=== PATIENT | male | born 1965 | race Caucasian/White ===

== ENCOUNTER 2022-04-06 13:22 | Inpatient (IN) | payer MEDICARE ==
[2022-04-06] VITALS (13 sets, daily range): BP systolic 109–165; BP diastolic 52–87; PULSE 52–104; TEMP 93–98.1
[~2022-04-06] VITALS: Ht 25.4 cm; Wt 81.0 kg
[~2022-04-06 13:22] MED LIST: CIPRO 500MG TA500 MG PO; FLOMAX 0.40.4 MG/CAP PO; MORPHINE SULFAT60 M1 PO; PERCOCET 325 MG1 TA2 PO; PERCOCET 5/321 UDTAB PO; ZOFRAN 4MG T4 MG/TAB PO
[2022-04-06 13:58] LABS: HEMATOCRIT 44.8 % (42.0-52.0); HEMOGLOBIN 14.8 g/dl (13.5-18.0); MEAN CELL VOLUME 89 fl (80.0-100.0); MEAN CORPUSCULAR HEMOGLOBIN 30 pg (27-31); MEAN CORPUSCULAR HGB CONC 33 g/dl (33.0-37.0); MEAN PLATELET VOLUME 10.8 fl (7.4-10.4); PLATELET COUNT 207 K/mm3 (130-400); RED BLOOD COUNT 5.02 M/mm3 (4.20-5.60); REDCELL DISTRIBUTION WIDTH-CV 13.3 % (11.5-14.5)
[2022-04-06 14:11] LABS: ALANINE AMINOTRANSFERASE 31 U/L (0-55); ALKALINE PHOSPHATASE 93 U/L (40-150); ANION GAP 15 mmol/L (7-16); AST,SGOT 17 U/L (5-34); BILIRUBIN,TOTAL 0.8 mg/dL (0.2-1.2); BLOOD UREA NITROGEN 15 mg/dL (8-26); CALCIUM 9.1 mg/dL (8.4-10.2); CARBON DIOXIDE 15 mmol/L (22-29); CHLORIDE 109 mmol/L (98-107); CREATININE, serum 1.23 mg/dL (0.72-1.25); GLUCOSE 114 mg/dL (70-99); LIPASE 9 U/L (8-78); SODIUM 139 mmol/L (136-145); TOTAL PROTEIN 7.2 gm/dL (6.2-8.1)
[2022-04-06 14:17] LABS: TROPONIN-I < 0.010 ng/mL (0.00-0.033)
[2022-04-06 15:01] LABS: COLLECTION METHOD CLEAN CATCH
[2022-04-06 15:13] LABS: PH 7 (5-8); SQUAMOUS EPITHELIAL None Seen /hpf (0-10); URINE APPEARANCE Clear (CLEAR/HAZY); URINE BACTERIA None Seen /hpf (NONE SEEN); URINE BLOOD 1+ (NEGATIVE); URINE COLOR Yellow (YELLOW); URINE GLUCOSE Negative (NEGATIVE); URINE KETONE Trace (NEGATIVE); URINE NITRATE Negative (NEGATIVE); URINE PROTEIN(semi-quant) Negative (NEGATIVE); URINE UROBILINOGEN Negative (NEGATIVE)
[2022-04-06 15:18] LABS: BAND 1 % (0-10); LYMPHOCYTE 4 % (20.0-51.0); NEUTROPHILS 93 % (42.0-75.2); PLATELET ESTIMATE NORMAL (NORMAL)
--- NOTE | 2022-04-06 17:50 | NUR ---
PATIENT ALERT AND ORIENTED X3. STABLE VITAL SIGNS. RESTING IN BED, URINAL AND WATER AT BEDSIDE. BELONGIGNS WITHIN REACH. CALL LIGHT AND ROOM PHONE WITH IN REACH.
--- NOTE | 2022-04-06 19:12 | NUR ---
PT SITTING UP IN BED EATING DINNER. PT DENIES ANY PAIN AT THIS TIME. BELONGINGS WITHIN REACH. URINAL CONTAINS BLOOD-TINGED URINE. CALL LIGHT WITHIN REACH.
[2022-04-07 03:54] VITALS: BP 93/58; PULSE 79; TEMP 98.5
[2022-04-07 07:34] VITALS: BP 114/69; PULSE 80; TEMP 97.5
[2022-04-07] MEDS ORDERED: OMNICEF 300MG300 MG PO (12:08)
[2022-04-07 12:21] VITALS: BP 123/80; PULSE 64; TEMP 98.8
--- NOTE | 2022-04-07 12:47 | NUR ---
DISCHARGE INSTRUCTIONS REVIEWED WITH PATIENT, QUESTIONS SOLICITED AND ANSWERED. PT LEFT UNIT AMBUALTORY.
== END 2022-04-07 12:49 | disposition home or self-care (01) | DRG 661 ==
LOC: COL.ER 13:22 → SURG 18:00
PROVIDERS: Emergency Medicine; ADMIT Urology
PROC: BT1F1ZZ Fluoroscopy of Left Kidney, Ureter and Bladder using Low Osmolar Contrast (ICD-10-PCS; principal; 2022-04-06 17:30)
PROC: 0T778DZ Dilation of Left Ureter with Intraluminal Device, Via Natural or Artificial Opening Endoscopic (ICD-10-PCS; 2022-04-06 17:30)
DX: N13.6 Pyonephrosis (principal); F17.210 Nicotine dependence, cigarettes, uncomplicated; G89.29 Other chronic pain; M54.9 Dorsalgia, unspecified; J44.9 Chronic obstructive pulmonary disease, unspecified; Z87.442 Personal history of urinary calculi; Z88.5 Allergy status to narcotic agent; Z91.040 Latex allergy status
CPT/HCPCS: C2617; J0696; J1100; J1885; J2405; J2704; J3010; Q9967

== ENCOUNTER → 2022-10-08 | Outpatient (CLI) | payer MEDICARE ==
[~2022-10-08] MED LIST changes: +OMNICEF 300MG300 MG PO
== END ==
LOC: COL.RAD 10:30
DX: C44.92 Squamous cell carcinoma of skin, unspecified (principal); R63.4 Abnormal weight loss
CPT/HCPCS: Q9967

== ENCOUNTER 2024-06-11 08:53 | Outpatient (CLI) | payer MEDICARE ==
[2006-09-05 02:32] VITALS: TEMP 98.2
[~2024-06-11] VITALS: Ht 177.8 cm; Wt 83.3 kg
[2024-06-11] VITALS (14 sets, daily range): BP systolic 113–138; BP diastolic 65–94; PULSE 61–91; TEMP 98.3
[~2024-06-11 08:53] MED LIST changes: +FLEXERIL 1010 MG/TAB PO; +MS CONTIN 330 MG/TAB PO
[2024-06-11] MEDS ORDERED: fentaNYL 50 MCG/ML 2 ML VIAL IV SCH (10:36)
[2024-06-11] MEDS ORDERED: Midazolam 2 MG/2 ML VIAL IV SCH (10:36)
--- NOTE | 2024-06-11 11:29 | NUR ---
1036 PT WAS GIVEN 1MG VERSED AND 50 MCG FENT[address]L [address]SP [address] ABERNATHY
--- NOTE | 2024-06-11 13:15 | NUR ---
Discharge instructions given to pt.pt verbalizes understanding.Pt escortedout via wheelchair by this nurse.
== END 2024-06-11 16:17 ==
LOC: COL.RAD 08:53
DX: R91.8 Other nonspecific abnormal finding of lung field (principal)
CPT/HCPCS: J2250; J3010